=== PATIENT | male | born 1955 | race Caucasian/White ===

== ENCOUNTER → 2017-05-25 | Day surgery (SDC) | payer OTHER ==
[~2017-05-25] VITALS: Ht 182.9 cm; Wt 118.9 kg
[~2017-05-25] MED LIST: ASPI325T PO; BUPIVACAINE HCL PF 0.25% 30 ML VIAL INFIL ONE; CHLORHEXIDINE GLUCONATE 2 % 1 PACK (2 CLOTHS) TOPICAL PRN; CIPR-9 PO; CIPROFLOXACIN 400 MG PREMIX 200 ML IV SCH; FAMOTIDINE 20 MG/2 ML VIAL ONE; GLUCTAB PO; HYDR25TA5 PO; INSULIN HUMAN REGULAR 1,000 UNITS/10 ML VIAL SQ PRN; LACTATED RINGER'S 1000 ML INJ 1,000 ML IV ONE; LACTATED RINGER'S 1000 ML IV PRN; LIDOCAINE HCL 2% 50 ML VIAL INFIL ONE; LIDOCAINE HCL 2% 50 ML VIAL ONE; LISI-515 PO; METF500T4 PO; METOPROLOL TARTRATE 25 MG TAB PO PRN; MIDAZOLAM HCL 2 MG/2 ML VIAL ONE; MULT-65 PO; NEOMYCIN/POLYMYXIN 1 ML G.U. IRRIGANT IR ONE; NEOMYCIN/POLYMYXIN/BACITRACIN OINT 0.9 GM PACKET TOPICAL ONE; NEOMYCIN/POLYMYXIN/BACITRACIN OINT 15 GM TUBE ONE; NORC5TAB PO; POVIDONE IODINE 5% (ANTISEPSIS KIT) 4 APPLICATIONS EACH NARE PRN; PRAV20TA2 PO; PROPOFOL 200 MG/20 ML AMP IV ONE; SODIUM CHLORID 0.9% 500 ML IV PRN
[2017-05-25 06:32] VITALS: BP 117/90; PULSE 98; RESP 29; TEMP 97.7; O2SAT 96
[2017-05-25 07:02] LABS: AUTOMATED NEUTROPHIL # 2.8 TH/MM3 (1.8-7.7); BASOPHIL # 0.1 TH/MM3 (0-0.2); BASOPHIL % 0.8 % (0.0-2.0); EOSINOPHIL # 0.2 TH/MM3 (0-0.4); EOSINOPHIL % 2.4 % (0.0-4.0); HEMATOCRIT 46.3 % (39.0-51.0); HEMO FLAGS DIFF FINAL; LYMPH % 46.9 % (9.0-44.0); LYMPHOCYTE # 3.2 TH/MM3 (1.0-4.8); MEAN CELL VOLUME 84.2 FL (80.0-100.0); MEAN CORPUSCULAR HGB CONC 35.7 % (32.0-36.0); MONO % 9.9 % (0.0-8.0); PLATELET COUNT 196 TH/MM3 (150-450); RED BLOOD COUNT 5.49 MIL/MM3 (4.50-5.90); RED CELL DISTRIBUTION WIDTH 13.1 % (11.6-17.2); WHITE BLOOD COUNT 6.9 TH/MM3 (4.0-11.0)
[2017-05-25 10:10] VITALS: BP 142/94; PULSE 92; RESP 16; TEMP 97.4; O2SAT 96
--- NOTE | 2017-05-25 13:43 | MP ---
cc: CYRIL MIRANDA III, M.D. DATE OF SURGERY: 05/25/2017 PREOPERATIVE DIAGNOSIS Right index finger nail bed mass and dystrophic nail. POSTOPERATIVE DIAGNOSIS Right index finger nail bed mass and dystrophic nail. PROCEDURE Right index finger partial nail plate removal and nail bed mass excisional biopsy. SURGEON Cyril Miranda III, MD DETAILS OF PROCEDURE The patient was brought to the operating room and placed supine on the operating table. After the correct site and side of surgery were verified by members of each team in the room multiple times including the patient and myself and after adequate preoperative markings and preoperative written consent were verified by everyone and after adequate preoperative timeout was performed to everyone's satisfaction and after adequate IV sedation had been achieved the right upper extremity was prepped and draped in traditional sterile surgical fashion. A 50/50 mixture of 2% plain lidocaine and 0.5% plain Marcaine was infiltrated into the skin on the dorsal aspect of the finger proximal to the nail bed as well as in the second web space for a digital block. Two small fingers from the size 6 sterile glove were used and a finger tourniquet was created. The dystrophic nail was excised for the proximal one-third exposing the mass which was deep to the nail bed. A longitudinal incision was made in the nail bed and then blunt dissection was performed to completely core out a 1 cm romano/pérez mass that was excised in its entirety and passed off the field as a specimen. Further exploration did not reveal any remnants or other anatomic abnormalities. Thorough irrigation was performed. The nail bed was then repaired using a running 5-0 chromic suture. The nail bed was then debrided of any deformity and scar tissue to help with further contour and appearance of the fingernail. Triple antibiotic ointment was applied to the nail bed and then protective nonadherent dressing was applied. The finger tourniquet was released and the finger became immediately soft, pink and warm and had brisk capillary refill of less than two seconds. A bulky soft dressing was applied. The patient was awakened from anesthesia and transported to the post-anesthesia care unit awake and in stable condition at the end of the case. Sponge, needle and instrument counts were correct at the end of the case as reported by the nurses in the room. MD DEBORAH Connolly III /9:09 AM /1:29 PM
--- NOTE | 2017-05-25 14:51 | EKG ---
Date Performed: 05/25/2017 Time Performed: 06:54:46 PTAGE: 61 years EKG: Sinus rhythm NORMAL ECG PREVIOUS TRACING : 08/27/2009 07.40 Compared to prior tracing no significant change DOCTOR: Adarsh Juan Interpretating Date/Time 05/25/2017 14:49:55
== END | disposition home or self-care (01) ==
LOC: HSDC 05:52
PROVIDERS: ATTEND Orthopaedic Surgery Hand Surgery
DX: D18.09 Hemangioma of other sites (principal); L60.3 Nail dystrophy; I10 Essential (primary) hypertension; E11.9 Type 2 diabetes mellitus without complications; E78.5 Hyperlipidemia, unspecified; Z01.810 Encounter for preprocedural cardiovascular examination; Z79.84 Long term (current) use of oral hypoglycemic drugs; Z79.82 Long term (current) use of aspirin; Z79.899 Other long term (current) drug therapy
CPT/HCPCS: 00400; 11750; 11755; 85025; 88307; 93005; J0744; J2250; J3010; J7120; 88305